=== PATIENT | female | born 1955 | race Caucasian/White ===

== ENCOUNTER 2017-04-11 13:01 | Observation (INO) | payer MEDICARE, MEDICAID ==
[2017-04-11] VITALS (9 sets, daily range): BP systolic 138–159; BP diastolic 63–79; PULSE 49–256; RESP 14–20; TEMP 97.9–98.3; O2SAT 97–99
[~2017-04-11] VITALS: Ht 162.6 cm; Wt 103.0 kg
[~2017-04-11 13:01] MED LIST: ASPI81 PO; DICL50 PO; IBUP800T23 PO; OXYC-360 PO; PERC10TA27 PO; SIMV20TA OR; TRAM50 PO; ZOVI800T13 PO
--- NOTE | 2017-04-11 13:12 | PD ---
Physical Exam Time Seen by Provider: 13:11 Narrative 61yo F c/o left sided chest pain since Saturday. On antibiotics for sinus infection that was called in by her PCP. +SOB. Patient seen in triage. VS reviewed. Awaiting bed placement. Data Data Last Documented VS Vital Signs Date Time Temp Pulse Resp B/P (MAP) Pulse Ox O2 Delivery O2 Flow Rate FiO2 04/11/17 13:03 97.9 84 16 139/73 (95) 98 MDM Supervised Visit with KATELYNN: Milly Hair Apr 11, 2017 13:12
[2017-04-11] MEDS ORDERED: SODIUM CHLORIDE 0.9% FLUSH 10 ML FLUSH IVF PRN (13:15)
--- NOTE | 2017-04-11 13:51 | RADRPT ---
EXAM DATE/TIME: 04/11/2017 13:38 [facility] COMPARISON: No previous studies available for comparison. INDICATIONS : Chest pain. Slight shortness of breath. MEDICAL HISTORY : None. SURGICAL HISTORY : None. ENCOUNTER: Initial ACUITY: 2 days PAIN SCORE: 4/10 LOCATION: Bilateral chest FINDINGS: PA and lateral views of the chest demonstrate the lungs to be symmetrically aerated without evidence of mass, infiltrate or effusion. The cardiomediastinal contours are unremarkable. Osseous structure s demonstrate mild degenerative changes but are otherwise intact. CONCLUSION: 1. No acute cardiopulmonary findings. Blake Winters MD on April 11, 2017 at 13:47 Board Certified Radiologist. This report was verified electronically.
[2017-04-11 14:28] LABS: APTT (PATIENT) 27.9 SEC (24.3-30.1); INTERNATIONAL NORMALIZED RATIO 0.9 RATIO
[2017-04-11 14:33] LABS: BASOPHIL # 0.1 TH/MM3 (0-0.2); BASOPHIL % 1.1 % (0.0-2.0); EOSINOPHIL # 0.1 TH/MM3 (0-0.4); EOSINOPHIL % 1.2 % (0.0-4.0); HEMATOCRIT 41.5 % (35.0-46.0); HEMO FLAGS DIFF FINAL; LYMPH % 24.8 % (9.0-44.0); LYMPHOCYTE # 1.9 TH/MM3 (1.0-4.8); MEAN CELL VOLUME 90.3 FL (80.0-100.0); MEAN CORPUSCULAR HEMOGLOBIN 29.8 PG (27.0-34.0); MONO % 6.6 % (0.0-8.0); NEUT % 66.3 % (16.0-70.0); PLATELET COUNT 254 TH/MM3 (150-450); RED BLOOD COUNT 4.59 MIL/MM3 (4.00-5.30); WHITE BLOOD COUNT 7.5 TH/MM3 (4.0-11.0)
[2017-04-11 14:40] LABS: ANION GAP 5 MEQ/L (5-15); BICARBONATE 27.9 MEQ/L (21.0-32.0); BLOOD UREA NITROGEN 13 MG/DL (7-18); CHLORIDE 103 MEQ/L (98-107); GLOMERULAR FILTRATION RATE 64 ML/MIN (>89); MAGNESIUM 2.2 MG/DL (1.5-2.5); POTASSIUM 4.2 MEQ/L (3.5-5.1); SODIUM (NA) 136 MEQ/L (136-145)
[2017-04-11 14:52] LABS: CREATINE KINASE 47 U/L (26-192)
[2017-04-11] MEDS ORDERED: HYDR-3535 PO (16:14)
[2017-04-11] MEDS ORDERED: MONT5CHW2 CHEW (16:14)
--- NOTE | 2017-04-11 16:37 | PD ---
HPI Chief Complaint: Chest Pain Time Seen by Provider: 15:49 Travel History International Travel<30 days: No Contact w/Intl Traveler<30days: No Traveled to known affect area: No History of Present Illness HPI 61-year-old female came to the emergency room with history of headache, left- sided neck, chest and shoulder pain. The pain started yesterday and is getting worse and hence she has decided to come to the emergency room. Since past 5 days she has been experiencing left-sided facial swelling with head pressure. She has history of recurrent sinusitis and has been taking her for that. However her symptoms were not improving and before yesterday she called her primary care and asked him to start her on antibiotic. She has been taking amoxicillin since yesterday but the symptoms never improved and hence she is here today. This morning when she woke up she noticed swelling around her left eye and left side of the face. Headache is 10 out of 10. Patient has not taken anything at home for the pain. No history of fever or chills. She has been nauseous but no vomiting. Patient is awake and answering questions appropriately. Patient did say that her chest pain was pleuritic. No history of DVT or PE in the past PFSH Past Medical History Narrative Medical List of her past medical, surgical, social and family history was reviewed from the nursing note. Arthritis: Yes Blood Disorders: No Cancer: No Cardiovascular Problems: Yes (HEART MURMER) High Cholesterol: Yes Chemotherapy: No Cerebrovascular Accident: No Diminished Hearing: No Endocrine: No Gastrointestinal Disorders: Yes GERD: Yes Genitourinary: No Headaches: Yes Hepatitis: No Hiatal Hernia: Yes Hypertension: Yes Immune Disorder: No Musculoskeletal: Yes (DEGENERATIVE DISK DISEASE) Neurologic: Yes Psychiatric: No Reproductive: No Respiratory: No Radiation Therapy: No Seizures: No Ulcer: No ?: Not Past Surgical History Abdominal Surgery: No AICD: No Arteriovenous Shunt: No Cardiac Surgery: No Ear Surgery: No Endocrine Surgery: No Eye Surgery: No Genitourinary Surgery: No Gynecologic Surgery: No Hysterectomy: Yes Insulin Pump: No Joint Replacement: No Neurologic Surgery: Yes (DISKECTOMY C4-C5 X 1 WEEK AGO 02/10/06) Oral Surgery: No Pacemaker: No Thoracic Surgery: No Other Surgery: Yes (HIATAL HERNIA) Social History Alcohol Use: No Tobacco Use: Yes Substance Use: No Allergies-Medications (Allergen,Severity, Reaction): Coded Allergies: aspirin (Verified Adverse Reaction, Severe, GI UPSET, 04/11/17) Uncoded Allergies: ENVIRONMENTAL (Allergy, Mild, 11/14/05) Comments List of her allergies reviewed from the nursing note. Reported Meds & Prescriptions Reported Meds & Active Scripts Active Reported Singulair (Montelukast Sodium) 5 Mg Chew 5 Mg CHEW HS Lortab (Hydrocodone-Acetaminophen) 10-325 Mg Tab 1 Tab PO Q6H PRN Narrative Medication List of her home medications reviewed from the nursing note. Review of Systems Except as stated in HPI: all other systems reviewed are Neg Physical Exam Narrative GENERAL: Awake, alert, mild distress SKIN: Focused skin assessment warm/dry. HEAD: Atraumatic. Normocephalic. EYES: Pupils equal and round. No scleral icterus. No injection or drainage. ENT: No nasal bleeding or discharge. Mucous membranes pink and moist. NECK: Trachea midline. No JVD. CARDIOVASCULAR: Regular rate and rhythm. No murmur appreciated. RESPIRATORY: No accessory muscle use. Clear to auscultation. Breath sounds equal bilaterally. GASTROINTESTINAL: Abdomen soft, non-tender, nondistended. Hepatic and splenic margins not palpable. MUSCULOSKELETAL: No obvious deformities. No clubbing. No cyanosis. No edema. NEUROLOGICAL: Awake and alert. No obvious cranial nerve deficits. Motor grossly within normal limits. Normal speech. PSYCHIATRIC: Appropriate mood and affect; insight and judgment normal. Data Data Last Documented VS Vital Signs Date Time Temp Pulse Resp B/P (MAP) Pulse Ox O2 Delivery O2 Flow Rate FiO2 04/11/17 19:00 54 14 138/63 (88) 99 Room Air 04/11/17 13:03 97.9 Orders Orders Electrocardiogram (04/11/17 13:12) Basic Metabolic Panel (Bmp) (04/11/17 13:12) Ckmb (Isoenzyme) Profile (04/11/17 13:12) Complete Blood Count With Diff (04/11/17 13:12) Magnesium (Mg) (04/11/17 13:12) Prothrombin Time / Inr (Pt) (04/11/17 13:12) Act Partial Throm Time (Ptt) (04/11/17 13:12) Troponin I (04/11/17 13:12) Iv Access Insert/Monitor (04/11/17 13:12) Sodium Chloride 0.9% Flush (Ns Flush) (04/11/17 13:15) Chest, Pa & Lat (04/11/17 13:12) Acetaminophen (Tylenol) (04/11/17 16:45) Ct Brain W/O Iv Contrast(Rout) (04/11/17 ) Ct Pulmonary Angiogram (04/11/17 ) Iohexol 350 Inj (Omnipaque 350 Inj) (04/11/17 18:49) Admit Order (Ed Use Only) (04/11/17 19:06) Labs Laboratory Tests Test 04/11/17 14:03 White Blood Count 7.5 TH/MM3 Red Blood Count 4.59 MIL/MM3 Hemoglobin 13.7 GM/DL Hematocrit 41.5 % Mean Corpuscular Volume 90.3 FL Mean Corpuscular Hemoglobin 29.8 PG Mean Corpuscular Hemoglobin Concent 33.0 % Red Cell Distribution Width 14.0 % Platelet Count 254 TH/MM3 Mean Platelet Volume 8.5 FL Neutrophils (%) (Auto) 66.3 % Lymphocytes (%) (Auto) 24.8 % Monocytes (%) (Auto) 6.6 % Eosinophils (%) (Auto) 1.2 % Basophils (%) (Auto) 1.1 % Neutrophils # (Auto) 5.0 TH/MM3 Lymphocytes # (Auto) 1.9 TH/MM3 Monocytes # (Auto) 0.5 TH/MM3 Eosinophils # (Auto) 0.1 TH/MM3 Basophils # (Auto) 0.1 TH/MM3 CBC Comment DIFF FINAL Differential Comment Prothrombin Time 10.0 SEC Prothromb Time International Ratio 0.9 RATIO Activated Partial Thromboplast Time 27.9 SEC Blood Urea Nitrogen 13 MG/DL Creatinine 0.90 MG/DL Random Glucose 98 MG/DL Calcium Level 8.4 MG/DL Magnesium Level 2.2 MG/DL Sodium Level 136 MEQ/L Potassium Level 4.2 MEQ/L Chloride Level 103 MEQ/L Carbon Dioxide Level 27.9 MEQ/L Anion Gap 5 MEQ/L Estimat Glomerular Filtration Rate 64 ML/MIN Total Creatine Kinase 47 U/L Troponin I LESS THAN 0.02 NG/ML MDM Medical Decision Making Medical Screen Exam Complete: Yes Emergency Medical Condition: Yes Medical Record Reviewed: Yes Interpretation(s) Twelve-lead EKG was reviewed by me. Normal sinus rhythm, left axis deviation, bradycardia, nonspecific ST-T wave changes. Heart rate of 56 bpm. Differential Diagnosis ACS, non-STEMI, intracranial hemorrhage, sinusitis Narrative Course 5:28 PM blood test results are back. Troponin is negative. I've ordered a CT of her head and CT angiogram of her chest. I will admit her to the chest pain center to rule out ACS. 7:[address] pulmonary and as well as the head CT is negative. Patient will be admitted to the chest pain center to rule out ACS. Procedures EKG Prior to Arrival: Yes Diagnosis Primary Impression: Chest pain Qualified Codes: R07.9 - Chest pain, unspecified Admitting Information Admitting Physician Requests: Observation Jamey Patel MD Apr 11, 2017 16:36
[2017-04-11] MEDS ORDERED: ACETAMINOPHEN 325 MG TAB PO ONE (16:45)
[2017-04-11] MEDS ORDERED: IOHEXOL 350 MG/ML 10 ML VIAL (for RAD DIAG) IVCONTRAST ONE (18:49)
--- NOTE | 2017-04-11 19:03 | RADRPT ---
EXAM DATE/TIME: 04/11/2017 18:46 [facility] COMPARISON: No previous studies available for comparison. INDICATIONS : Chest pain. IV CONTRAST: 75 cc Omnipaque 350 (iohexol) IV RADIATION DOSE: 23.10 CTDIvol (mGy) MEDICAL HISTORY : Hypertension. Hernia, hiatal. SURGICAL HISTORY : Hysterectomy. ENCOUNTER: Initial ACUITY: 1 day PAIN SCALE: 5/10 LOCATION: chest TECHNIQUE: Volumetric scanning of the chest was performed using a pulmonary embolism protocol MIP images were re constructed. Using automated exposure control and adjustment of the mA and/or kV according to patien t size, radiation dose was kept as low as reasonably achievable to obtain optimal diagnostic quality images. DICOM format image data is available electronically for review and comparison. Follow-up recommendations for detected pulmonary nodules are based at a minimum on nodule size and pa tient risk factors according to Fleischner Society Guidelines. FINDINGS: PULMONARY ARTERIES: No filling defects are seen in the pulmonary arteries through the segmental level. LUNGS: There is no consolidation or pneumothorax . No concerning pulmonary nodule is visualized. PLEURAE: There is no pleural thickening or pleural effusion. MEDIASTINUM: There is good visualization of the great vessels of the middle mediastinum. No evidence of mediastin al or hilar adenopathy/mass. There is mild coronary artery calcification. MUSCULOSKELETAL: No acute abnormality. MISCELLANEOUS: The visualized upper abdominal organs demonstrate no acute abnormality. CONCLUSION: No PE is identified. Additionally, no acute finding is identified to explain the patient's chest pain . Rafi Dove MD on April 11, 2017 at 19:00 Board Certified Radiologist. This report was verified electronically.
[2017-04-11] MEDS ORDERED: NITROGLYCERIN 0.4 MG SL 25 TABS/BTL SL PRN (19:15)
[2017-04-11] MEDS ORDERED: SODIUM CHLORIDE 0.9% FLUSH 10 ML FLUSH IV FLUSH PRN (19:15)
[2017-04-11] MEDS ORDERED: ACETAMINOPHEN 500 MG CPLT PO PRN (19:15)
[2017-04-11] MEDS ORDERED: ONDANSETRON HCL 4 MG/2 ML VIAL IV PRN (19:15)
--- NOTE | 2017-04-11 19:22 | RADRPT ---
EXAM DATE/TIME: 04/11/2017 18:41 [facility] COMPARISON: No previous studies available for comparison. INDICATIONS : Cephalgia. RADIATION DOSE: 58.57 CTDIvol (mGy) ; Tabletop CT Head MEDICAL HISTORY : Hypertension. SURGICAL HISTORY : None. ENCOUNTER: Initial ACUITY: 1 day PAIN SCALE: 5/10 LOCATION: cranial TECHNIQUE: Multiple contiguous axial images were obtained of the head. Using automated exposure control and adj ustment of the mA and/or kV according to patient size, radiation dose was kept as low as reasonably a chievable to obtain optimal diagnostic quality images. DICOM format image data is available electro nically for review and comparison. FINDINGS: CEREBRUM: The ventricles are normal for age. No evidence of midline shift, mass lesion, hemorrhage or acute in farction. No extra-axial fluid collections are seen. POSTERIOR FOSSA: The cerebellum and brainstem are intact. The 4th ventricle is midline. The cerebellopontine angle i s unremarkable. EXTRACRANIAL: The visualized portion of the orbits is intact. SKULL: The calvaria is intact. No evidence of skull fracture. CONCLUSION: Negative noncontrast head CT. No acute findings identified. Rafi Dove MD on April 11, 2017 at 19:19 Board Certified Radiologist. This report was verified electronically.
[2017-04-11] MEDS: ACETAMINOPHEN/HYDROcodone 325 MG/10 MG TAB PO PRN (22:55)
[2017-04-11] MEDS: SODIUM CHLORIDE 0.9% FLUSH 10 ML FLUSH IV FLUSH SCH (22:58)
[2017-04-12 00:49] VITALS: BP 121/64; PULSE 57; RESP 20; TEMP 98.3; O2SAT 95
[2017-04-12 04:06] VITALS: BP 121/57; PULSE 58; RESP 18; TEMP 98.4; O2SAT 93
[2017-04-12 04:18] LABS: CREATINE KINASE 62 U/L (26-192)
[2017-04-12 07:38] VITALS: PULSE 52
--- NOTE | 2017-04-12 07:59 | HHI.HP ---
HPI Primary Care Physician Addie Velasquez MD Chief Complaint Chest pain History of Present Illness 61-year-old female with history of chronic back pain presents to emergency room for further evaluation of chest pain. Onset Saturday morning. Location left anterior chest. No radiation. Described as heaviness. Nonexertional. Duration 3-4 hours. Associated symptoms "slightly short of breath." Denies nausea, vomiting, or diaphoresis. No known precipitating or relieving factors. Endorses similar pain in the past. Described a generally ill feeling Saturday. Saturday called PCP for antibiotics for sinusitis. Saturday again developed chest heaviness and noticed her left arm and leg swollen. Reports Saturday and swelling worsened and chest heaviness constant therefore came to the ER for further evaluation of both left side swelling and chest pain. Hurts to take a deep breath. No particular movements or position makes pain better or worse. Review of Systems General: Fatigue has improved. No weakness, fever, or chills. Recently treated for sinusitis on Saturday. HEENT: Headache yesterday has since improved. No vision changes. Endorses nasal congestion. No dysphasia CV: As stated above. Continues to have consistent chest heaviness. No palpitations, intermittent leg pain, or dizziness RESP: No SOB, cough, wheeze, or sputum production. Continues to smoke. GI: No nausea, vomiting, bowel changes, diarrhea, constipation, or pain. No change in appetite. : No dysuria, urgency, frequency, or history of kidney stones EXT: Left arm, left leg, and left side of face edema beginning on Saturday. No paraesthesias MS: Chronic back pain. History of cervical disk surgery. No change in ROM NEURO: No difficulty with balance, LOC, motor/sensory deficits PSYCH: No anxiety, depression, or situation stress SKIN: No rashes, no concerning lesions Past Family Social History Allergies: Coded Allergies: aspirin (Verified Adverse Reaction, Severe, GI UPSET, 04/11/17) Uncoded Allergies: ENVIRONMENTAL (Allergy, Mild, 11/14/05) Past Medical History Chronic back pain, frequent sinusitis, hiatal hernia, GERD, hyperlipidemia ( presently not taking medication) Past Surgical History Hysterectomy, Cervical disk fusion, Left breast lumpectomy Reported Medications Active Reported Singulair (Montelukast Sodium) 5 Mg Chew 5 Mg CHEW HS Lortab (Hydrocodone-Acetaminophen) 10-325 Mg Tab 1 Tab PO Q6H PRN Active Ordered Medications Current Medications Medications (Trade) Dose Ordered Sig/Radha Route Start Time Stop Time Status Last Admin (NS Flush) 2 ml UNSCH PRN IV FLUSH 04/11/17 19:15 (NS Flush) 2 ml BID IV FLUSH 04/11/17 21:00 04/11/17 22:58 (Tylenol) 500 mg Q4H PRN PO 04/11/17 19:15 (Zofran Inj) 4 mg Q6H PRN IV 04/11/17 19:15 (Nitrostat Sl) 0.4 mg Q5M PRN SL 04/11/17 19:15 ([place] 10-325 Mg) 1 tab Q6H PRN PO 04/11/17 23:00 04/11/17 22:55 Family History Noncontributory for early onset cardiovascular disease. Mother from lung cancer and had angina. Brother has a pace maker. Social History No known diabetes or hypertension. Known hyperlipidemia and reports at one point prescribed Simvastatin but can't remember why she quit taking medication. Smokes 1/2 pack daily for most of her adult life. Denies any alcohol or illegal drug use. Past Cardiac Testing Remote chemical testing. Physical Exam Vital Signs Vital Signs Date Time Temp Pulse Resp B/P (MAP) Pulse Ox O2 Delivery O2 Flow Rate FiO2 04/12/17 07:38 52 04/12/17 04:06 98.4 58 18 121/57 (78) 93 04/12/17 00:49 98.3 57 20 121/64 (83) 95 04/11/17 23:55 16 04/11/17 23:03 49 04/11/17 21:24 98.3 52 18 158/74 (102) 97 04/11/17 20:50 58 16 148/65 (92) 98 04/11/17 20:30 54 17 139/79 (99) 97 Room Air 04/11/17 20:00 56 18 151/69 (96) 98 Room Air 04/11/17 19:30 98 04/11/17 19:30 52 17 147/69 (95) 97 Room Air 04/11/17 19:00 54 14 138/63 (88) 99 Room Air 04/11/17 18:02 256 20 159/76 (103) 04/11/17 13:03 97.9 84 16 139/73 (95) 98 Physical Exam GENERAL: Alert WN, WD, NAD, obese, female HEAD: NC, AT, left periorbital edema HEENT: Pupils equal, round, reactive, conjunctiva not injected CV: RRR, without murmur, rub, gallop, no JVD, S1-S2 no S3-S4. RESP: Clear lungs throughout bilateral, no crackles, wheeze, rhonchi, symmetrical chest rise, nonlabored, able to speak in full sentences ABD: Soft, NT, ND, no masses, positive bowel tones EXT: Pulses +24, left leg slightly edematous compared to right leg, no edema appreciated of left arm. MS: Normal tone 4 extremities, nontender, no obvious deformities, full range of motion NEURO: CN II through CN XII grossly intact, motor strength 5/5 PSYCH: A+O 3, pleasant affect, appropriate speech, appropriate mood and affect , insight and judgment SKIN: Normal turgor, normal texture, no lesions, no rashes, even hair distribution Laboratory Laboratory Tests Test 04/11/17 14:03 04/11/17 20:30 04/12/17 03:25 White Blood Count 7.5 Red Blood Count 4.59 Hemoglobin 13.7 Hematocrit 41.5 Mean Corpuscular Volume 90.3 Mean Corpuscular Hemoglobin 29.8 Mean Corpuscular Hemoglobin Concent 33.0 Red Cell Distribution Width 14.0 Platelet Count 254 Mean Platelet Volume 8.5 Neutrophils (%) (Auto) 66.3 Lymphocytes (%) (Auto) 24.8 Monocytes (%) (Auto) 6.6 Eosinophils (%) (Auto) 1.2 Basophils (%) (Auto) 1.1 Neutrophils # (Auto) 5.0 Lymphocytes # (Auto) 1.9 Monocytes # (Auto) 0.5 Eosinophils # (Auto) 0.1 Basophils # (Auto) 0.1 CBC Comment DIFF FINAL Differential Comment Prothrombin Time 10.0 Prothromb Time International Ratio 0.9 Activated Partial Thromboplast Time 27.9 Blood Urea Nitrogen 13 Creatinine 0.90 Random Glucose 98 Calcium Level 8.4 Magnesium Level 2.2 Sodium Level 136 Potassium Level 4.2 Chloride Level 103 Carbon Dioxide Level 27.9 Anion Gap 5 Estimat Glomerular Filtration Rate 64 Total Creatine Kinase 47 53 62 Troponin I LESS THAN 0.02 0.02 LESS THAN 0.02 Result Diagram: 04/11/17 1403 04/11/17 1403 Imaging Last Impressions Chest X-Ray 04/11/17 1312 Signed Impressions: Service Date/Time: March 13:38 - CONCLUSION: 1. No acute cardiopulmonary findings. Blake Winters MD Head CT 04/11/17 0000 Signed Impressions: Service Date/Time: March 18:41 - CONCLUSION: Negative noncontrast head CT. No acute findings identified. Rafi Dove MD CT Angiography 04/11/17 0000 Signed Impressions: Service Date/Time: , April 11, 2017 18:46 - CONCLUSION: No PE is identified. Additionally, no acute finding is identified to explain the patient's chest pain. Rafi Dove MD Course EKG NSB, left axis, incomplete RBBB Caprini VTE Risk Assessment Caprini VTE Risk Assessment: Mod/High Risk (score >= 2) Caprini Risk Assessment Model Point Value = 1 Point Value = 2 Point Value = 3 Point Value = 5 Age 41-60 Minor surgery BMI > 25 kg/m2 Swollen legs Varicose veins or History of unexplained or recurrent spontaneous Oral contraceptives or hormone replacement Sepsis (< 1 month) Serious lung disease, including pneumonia (< 1 month) Abnormal pulmonary function Acute myocardial infarction Congestive heart failure (< 1 month) History of inflammatory bowel disease Medical patient at bed rest Age 61-74 Arthroscopic surgery Major open surgery (> 45 min) Laparoscopic surgery (> 45 min) Malignancy Confined to bed (> 72 hours) Immobilizing plaster cast Central venous access Age >= 75 History of VTE Family history of VTE Factor V Leiden Prothrombin [id number] Lupus anticoagulant Anticardiolipin antibodies Elevated serum homocysteine Heparin-induced thrombocytopenia Other congenital or acquired thrombophilia Stroke (< 1 month) Elective arthroplasty Hip, pelvis, or leg fracture Acute spinal cord injury (< 1 month) Prophylaxis Regimen Total Risk Factor Score Risk Level Prophylaxis Regimen 0-1 Low Early ambulation 2 Moderate Order ONE of the following: *Sequential Compression Device (SCD) *Heparin 5000 units SQ BID 3-4 Higher Order ONE of the following medications: *Heparin 5000 units SQ TID *Enoxaparin/Lovenox 40 mg SQ daily (WT < 150 kg, CrCl > 30 mL/min) *Enoxaparin/Lovenox 30 mg SQ daily (WT < 150 kg, CrCl > 10-29 mL/min) *Enoxaparin/Lovenox 30 mg SQ BID (WT < 150 kg, CrCl > 30 mL/min) AND/OR *Sequential Compression Device (SCD) 5 or more Highest Order ONE of the following medications: *Heparin 5000 units SQ TID (Preferred with Epidurals) *Enoxaparin/Lovenox 40 mg SQ daily (WT < 150 kg, CrCl > 30 mL/min) *Enoxaparin/Lovenox 30 mg SQ daily (WT < 150 kg, CrCl > 10-29 mL/min) *Enoxaparin/Lovenox 30 mg SQ BID (WT < 150 kg, CrCl > 30 mL/min) AND *Sequential Compression Device (SCD) Assessment and Plan Assessment and Plan #1 Atypical chest pain-admitted to chest pain center. Ruled out with 3 sets of EKGs, cardiac enzymes, monitor overnight. Seen and evaluated by Dr. Viral Sidhu. Will proceed with stress test. If unremarkable will later discharged with follow-up this afternoon with Dr. Velasquez. #2 Left orbital and left leg edema-CTA negative for PE. Sole-Medrol 125mg IV x1 dose, follow up with PCP #3 Chronic back pain-home pain medication continued last evening #4 Tobacco use-strongly encouraged and stressed importance of tobacco sensation. Encouraged her to quit smoking. #5 Sinusitis-patient has stopped antibiotics, follow up with PCP keeping this afternoons appointment if Lexiscan unremarkable. Charla Moreno Apr 12, 2017 07:59
[2017-04-12] MEDS: SODIUM CHLORIDE 0.9% FLUSH 10 ML FLUSH IV FLUSH SCH (08:18)
[2017-04-12] MEDS: ACETAMINOPHEN/HYDROcodone 325 MG/10 MG TAB PO PRN (08:39)
[2017-04-12 08:50] VITALS: BP 130/67; PULSE 53; RESP 16; TEMP 97.1; O2SAT 96
[2017-04-12] MEDS ORDERED: methylPREDNISolone SOD SUCC 125 MG/2 ML VIAL IV PUSH ONE (09:00)
[2017-04-12] MEDS ORDERED: REGADENOSON INJ 0.4 MG/5 ML SYR ONE (10:04)
[2017-04-12 11:22] VITALS: BP 122/57; PULSE 55; RESP 16; TEMP 97.8; O2SAT 96
--- NOTE | 2017-04-12 11:25 | RADRPT ---
EXAM DATE/TIME: 04/12/2017 09:25 [facility] COMPARISON: No previous studies available for comparison. INDICATIONS : Left sided chest pain radiating to left neck. Angina. DOSE: 34.5 mCi Tc99m Myoview at stress. 11 mCi Tc99m Myoview at rest. 0.4 mg Lexiscan STRESS SYMPTOMS: Dyspnea. EJECTION FRACTION: 65% MEDICAL HISTORY : Hypertension. SURGICAL HISTORY : Hysterectomy. Back surgery. ENCOUNTER: Initial ACUITY: 1 day PAIN SCALE: 3/10 LOCATION: Left chest TECHNIQUE: The patient underwent pharmacologic stress with infusion of prescribed dose. Continuous ECG tracing was monitored during stress. Gated SPECT imaging was performed after stress and conventional SPECT i maging was performed at rest. The examination was performed on a SPECT/CT scanner, both attenuation and non-corrected datasets were reviewed. FINDINGS: DISTRIBUTION: The maximum perfused segment at stress is in the lateral wall. PERFUSION STUDY: The pattern of perfusion at stress is within normal limits. GATED STUDY: There is intact wall motion and thickening without hypokinetic or dyskinetic segments. CONCLUSION: 1. No significant focal stress-induced perfusion defect. 2. No significant focal wall motion abnormality with EF of 65%. RISK CATEGORY: Low (<1% Annual Mortality Rate) Keyshawn Correa MD on April 12, 2017 at 11:20 Board Certified Radiologist. This report was verified electronically.
--- NOTE | 2017-04-12 11:43 | EKG ---
Date Performed: 04/11/2017 Time Performed: 20:40:37 PTAGE: 61 years EKG: SINUS BRADYCARDIA INCOMPLETE RIGHT BUNDLE BRANCH BLOCK BORDERLINE ECG Compared to prior tra cing no significant change PREVIOUS TRACING : 04/11/2017 13.58 DOCTOR: Angelo Ramirez Interpretating Date/Time 04/12/2017 11:40:39
--- NOTE | 2017-04-12 11:43 | EKG ---
Date Performed: 04/11/2017 Time Performed: 13:58:18 PTAGE: 61 years EKG: SINUS BRADYCARDIA BORDERLINE LEFT AXIS DEVIATION INCOMPLETE RIGHT BUNDLE BRANCH BLOCK BORDE RLINE ECG Compared to prior tracing no significant change PREVIOUS TRACING : 10/05/2010 09.03 DOCTOR: Angelo Ramirez Interpretating Date/Time 04/12/2017 11:40:49
--- NOTE | 2017-04-12 11:51 | HHI.DCPOC ---
Discharge Care Plan Diagnosis: (1) Atypical chest pain (2) Tobacco abuse (3) Sinusitis Goals to Promote Your Health * To prevent worsening of your condition and complications * To maintain your health at the optimal level Directions to Meet Your Goals Take your medications as prescribed Follow your dietary instruction Follow activity as directed Keep your appointments as scheduled Take your immunizations and boosters as scheduled If your symptoms worsen call your PCP, if no PCP go to Urgent Care Center or Emergency Room Smoking is Dangerous to Your Health. Avoid second hand smoke Call the 24-hour hour crisis hotline for domestic abuse at Charla Moreno Apr 12, 2017 11:51
--- NOTE | 2017-04-15 12:14 | TR ---
Date Performed: 04/12/2017 Time Performed: 10:06:06 DOCTOR: Viral Sidhu DRUG LIST: CLINICAL HISTORY: CHEST PAIN REASON FOR TEST: CHEST PAIN REASON FOR ENDING: OBSERVATION: CONCLUSION: Lexiscan stress test was performed under standard four minute protocol. Radionuclid e was injected one minute prior to ending the test. No electrocardiographic abormalities were present to suggest ischemia. Nuclear imaging and interpretation are pending. COMMENTS:
== END 2017-04-12 12:43 | disposition home or self-care (01) ==
LOC: NEPC 13:01 → NEDA 19:10 → NEPFCDU 21:04
PROVIDERS: ADMIT Internal Medicine Cardiovascular Disease; ATTEND Internal Medicine Cardiovascular Disease
DX: R07.89 Other chest pain (principal); R60.0 Localized edema; M54.9 Dorsalgia, unspecified; G89.29 Other chronic pain; J32.9 Chronic sinusitis, unspecified; R06.02 Shortness of breath; R53.83 Other fatigue; R09.81 Nasal congestion; R51 Headache; R06.00 Dyspnea, unspecified; R11.0 Nausea; R00.1 Bradycardia, unspecified; M54.2 Cervicalgia; M25.512 Pain in left shoulder; I10 Essential (primary) hypertension; I20.9 Angina pectoris, unspecified; E78.5 Hyperlipidemia, unspecified; I45.10 Unspecified right bundle-branch block; E78.00 Pure hypercholesterolemia, unspecified; K21.9 Gastro-esophageal reflux disease without esophagitis; M19.90 Unspecified osteoarthritis, unspecified site; F17.200 Nicotine dependence, unspecified, uncomplicated; Z90.49 Acquired absence of other specified parts of digestive tract
CPT/HCPCS: 70450; 71020; 71275; 78452; 80048; 82550; 83735; 84484; 85025; 85610; 85730; 93005; 93017; 96374; 99285; A9502; G0378; J2785; J2930; Q9967